=== PATIENT | male | born 1995 | race Caucasian/White ===

== ENCOUNTER 2019-09-29 12:33 | Emergency (ER) | payer MEDICAID ==
[~2019-09-29] VITALS: Ht 154.9 cm; Wt 58.1 kg
--- NOTE | 2019-09-29 13:18 | NUR ---
Patient to ER bed 5 to gown for evaluation. Side rails up.
--- NOTE | 2019-09-29 13:19 | NUR ---
Patient is awake, alert, and oriented x4. Patient is complaining of right tooth pain since this morning. No other complaints.
--- NOTE | 2019-09-29 13:20 | NUR ---
RODRIGO Krishnamurthy at bedside examining patient.
[2019-09-29 13:27] VITALS: BP_SYST 129
[2019-09-29] MEDS ORDERED: IBUPROFEN 600 MG TABLET PO ONE ×2 (13:30→13:45)
--- NOTE | 2019-09-29 13:45 | NUR ---
Dietary called for to go lunch tray.
--- NOTE | 2019-09-29 13:46 | NUR ---
Given copies of tests performed during visit. Patient is awake, alert and oriented. Ambulatory with steady gait. Refuses offer of detention placement. Given list of available shelters in surrounding areas. Refused clean clothes. Refused ride.
[2019-09-29 13:47] VITALS: BP_SYST 129
--- NOTE | 2019-09-29 13:47 | NUR ---
Patient given written and verbal discharge instructions and verbalizes understanding. ER MD discussed with patient the results and treatment provided. Patient in stable condition. ID arm band removed. Rx of amoxicillin, motrin given. Patient educated on pain management and to follow up with PMD. Pain Scale 9/10, MARY Krishnamurthy is aware. Opportunity for questions provided and answered. Medication side effect fact sheet provided.
== END 2019-09-29 13:47 | disposition home or self-care (01) ==
LOC: SED 12:33
DX: S02.5XXA Fracture of tooth (traumatic), initial encounter for closed fracture (principal); F17.210 Nicotine dependence, cigarettes, uncomplicated; X58.XXXA Exposure to other specified factors, initial encounter; Y93.89 Activity, other specified; Y92.89 Other specified places as the place of occurrence of the external cause; Y99.8 Other external cause status
CPT/HCPCS: 99283